=== PATIENT | female | born 1965 | race Caucasian/White ===

== ENCOUNTER 2024-01-27 10:17 | Inpatient (IN) ==
[2024-01-27] MEDS ORDERED: PERCOCET TAB 5/325 MG PO PRN (13:32)
[2024-01-27] MEDS ORDERED: NITROSTAT SL PRN (13:32)
[2024-01-27] MEDS: LR 1,000 ML IV 1,000 ML IV SCH (14:24)
[2024-01-27 14:36] LABS: BASOPHILS # (AUTO) 0.1 X10^3/uL (0.0-0.1); BASOPHILS % (AUTO) 1.4 % (0.2-1.0); EOSINOPHILS # (AUTO) 0.4 x10^3/uL (0.0-0.2); EOSINOPHILS % (AUTO) 5.1 % (0.9-2.9); HEMATOCRIT 35.9 % (36.0-47.0); LYMPHOCYTES % (AUTO) 23.1 % (21.0-51.0); MEAN CORPUSCULAR HEMOGLOBIN 29.1 pg (27.0-34.0); MEAN CORPUSCULAR HGB CONC 33.3 g/dL (33.0-35.0); MEAN CORPUSCULAR VOLUME 87.1 fL (80.0-100.0); MONOCYTES # (AUTO) 0.5 x10^3/uL (0.3-0.8); MONOCYTES % (AUTO) 5.5 % (0.0-13.0); NEUTROPHILS # (AUTO) 5.7 x10^3/uL (2.2-4.8); NEUTROPHILS % (AUTO) 64.9 % (42.0-75.0); PLATELET COUNT 250 X10^3/uL (150.0-450.0); RED BLOOD COUNT 4.12 X10^6/uL (3.5-5.4); RED CELL DISTRIBUTION WIDTH 14.1 % (11.6-16.5); WHITE BLOOD COUNT 8.8 X10^3/uL (3.6-10.0)
[2024-01-27 14:45] LABS: INR 1.09 (0.8-1.3)
[2024-01-27] MEDS: HEPARIN SODIUM IN D5W 25,000 UNITS/500 ML BAG IV PRN (14:57)
[2024-01-27 15:01] LABS: ALANINE AMINOTRANSFERASE 30 Units/L (12-78); ALBUMIN 2.9 g/dL (3.4-5.0); ALKALINE PHOSPHATASE 138 Units/L (46-116); ASPARTATE AMINO TRANSFERASE 13 Units/L (15-37); BLOOD UREA NITROGEN 17 mg/dL (7-18); CALCIUM 8.3 mg/dL (8.5-10.1); CARBON DIOXIDE 29.1 mmol/L (21-32); CHLORIDE 105 mmol/L (98-107); COR CA(FOR HYPOALB) 9.2 mg/dL (8.5-10.1); COR NA(FOR HYPERGLY) 147 mmol/L (136-145); CREATININE 0.84 mg/dL (0.55-1.02); GLUCOSE 314 mg/dL (65-99); POTASSIUM 4.1 mmol/L (3.5-5.1); SODIUM 142 mmol/L (136-145); TOTAL PROTEIN 6.5 g/dL (6.4-8.2); eGFR NON BLACK RACES > 60 (>60)
[2024-01-27] MEDS: HEPARIN SODIUM INJ 5000 UNITS IVP ONE (15:09)
[2024-01-27] MEDS: NovoLIN R (or HumuLIN R) SC PRN (16:50)
[2024-01-27] MEDS: NEURONTIN CAP 100 MG PO SCH (20:10)
[2024-01-27] MEDS: LOPRESSOR TAB 50 MG PO SCH (20:10)
[2024-01-27] MEDS: HIBICLENS WASH EXT ONE (20:30)
--- NOTE | 2024-01-28 00:21 | DR.H&P ---
H&P History & Physical for Day of: H&P Date: 01/27/24 Chief Complaint Chief Complaint: right leg rest pain Allergies Allergies Allergy/AdvReac Type Severity Reaction Status Date / Time No Known Allergies Allergy Verified 12/10/23 13:00 History of Present Illness History of Present Illness: This is a 58 year old female with history of significant vascular disease and diabetes who recently had acute intervention of the left leg with rest pain and early tissue loss of the left lateral toes who in November of this year underwent atherectomy and drug coated balloon angioplasty of the distal left superficial femoral artery as well as angioplasty of the proximal left peroneal artery . The patient did have this as the only runoff with reconstitution of the posterior tibial artery . Her rest pain resolved and her skin of of the lateral 3 toes of the left foot healed .Follow- up Doppler studies show normal arterial blood flow of the left leg with normal ankle indices brachial and normal waveforms, however the patient has had some type of intervention of the right leg in the past and ankle brachial indices on this side are approximately 0.4 consistent with impending tissue loss. She does have some pain but no evidence of tissue loss of this time. She is admitted for heparin drip and intervention of the right leg . Past Medical History Past Medical History: Diabetes, Dyslipidemia and Hypertension Past Surgical History Surgical History: Hysterectomy Additional Surgical History: ortho surgery Family History Family Medical History: Cancer and [place] Social History Does patient currently use any type of tobacco product: No Have you used tobacco products in the last 12 months: No Type of Tobacco Use: None Does any household member use tobacco: No Alcohol Use: None Drug Use: Marijuana Medications Home Medications: Home Medications Medication Instructions Recorded Confirmed Type amlodipine 5 mg tablet 5 mg PO QDAY 12/10/23 01/27/24 History atorvastatin 80 mg tablet 80 mg PO QDAY 12/10/23 01/27/24 History clopidogrel 75 mg tablet 75 mg PO QDAY 12/10/23 01/27/24 History escitalopram oxalate 10 mg tablet 10 mg PO QDAY 12/10/23 01/27/24 History insulin glargine U-300 conc 300 55 unit subcut DAILY 12/10/23 01/27/24 History unit/mL (1.5 mL) subcutaneous pen (Toujeo SoloStar U-300 Insulin) linagliptin 5 mg tablet (Tradjenta) 5 mg PO QDAY 12/10/23 01/27/24 History lorazepam 0.5 mg tablet 0.5 mg PO PRN PRN Anxiety 12/10/23 01/27/24 History losartan 100 mg tablet 100 mg PO QDAY 12/10/23 01/27/24 History metoprolol tartrate 50 mg tablet 50 mg PO BID 12/10/23 01/27/24 History pregabalin 100 mg capsule 100 mg PO BID 12/10/23 01/27/24 History Labs 01/27/24 14:15 01/27/24 14:15 Labs: Laboratory WBC 8.8 X10^3/uL (3.6-10.0) 01/27/24 14:15 RBC 4.12 X10^6/uL (3.5-5.4) 01/27/24 14:15 Hgb 12.0 g/dL (12.0-16.0) 01/27/24 14:15 Hct 35.9 % (36.0-47.0) L 01/27/24 14:15 MCV 87.1 fL (80.0-100.0) 01/27/24 14:15 MCH 29.1 pg (27.0-34.0) 01/27/24 14:15 MCHC 33.3 g/dL (33.0-35.0) 01/27/24 14:15 RDW 14.1 % (11.6-16.5) 01/27/24 14:15 Plt Count 250 X10^3/uL (150.0-450.0) 01/27/24 14:15 MPV 9.0 fL (7.4-11.0) 01/27/24 14:15 Neut % (Auto) 64.9 % (42.0-75.0) 01/27/24 14:15 Lymph % (Auto) 23.1 % (21.0-51.0) 01/27/24 14:15 [place] % (Auto) 5.5 % (0.0-13.0) 01/27/24 14:15 Eos % (Auto) 5.1 % (0.9-2.9) H 01/27/24 14:15 Baso % (Auto) 1.4 % (0.2-1.0) H 01/27/24 14:15 Neut # (Auto) 5.7 x10^3/uL (2.2-4.8) H 01/27/24 14:15 Lymph # (Auto) 2.0 X10^3/uL (1.3-2.9) 01/27/24 14:15 [place] # (Auto) 0.5 x10^3/uL (0.3-0.8) 01/27/24 14:15 Eos # (Auto) 0.4 x10^3/uL (0.0-0.2) H 01/27/24 14:15 Baso # (Auto) 0.1 X10^3/uL (0.0-0.1) 01/27/24 14:15 Absolute Nucleated RBC 0.1 /100WBC 01/27/24 14:15 PT 13.9 SECONDS (11.8-14.3) 01/27/24 14:15 INR Target Range - 01/27/24 14:15 INR 1.09 (0.8-1.3) 01/27/24 14:15 APTT 80.3 SECONDS (22.9-36.5) H 01/27/24 20:15 PTT Comment - 01/27/24 20:15 Sodium 142 mmol/L (136-145) 01/27/24 14:15 Corrected Sodium 147 mmol/L (136-145) H 01/27/24 14:15 Potassium 4.1 mmol/L (3.5-5.1) 01/27/24 14:15 Chloride 105 mmol/L (98-107) 01/27/24 14:15 Carbon Dioxide 29.1 mmol/L (21-32) 01/27/24 14:15 BUN 17 mg/dL (7-18) 01/27/24 14:15 Creatinine 0.84 mg/dL (0.55-1.02) 01/27/24 14:15 Est GFR (MDRD) Af Amer > 60 (>60) 01/27/24 14:15 Est GFR (MDRD) Non-Af > 60 (>60) 01/27/24 14:15 Glucose 314 mg/dL (65-99) H 01/27/24 14:15 POC Glucose (mg/dL) 186 mg/dL (65-99) H 01/27/24 19:53 Calcium 8.3 mg/dL (8.5-10.1) L 01/27/24 14:15 Corrected Calcium 9.2 mg/dL (8.5-10.1) 01/27/24 14:15 Total Bilirubin 0.30 mg/dL (0.2-1.0) 01/27/24 14:15 AST 13 Units/L (15-37) L 01/27/24 14:15 ALT 30 Units/L (12-78) 01/27/24 14:15 Alkaline Phosphatase 138 Units/L (46-116) H 01/27/24 14:15 Total Protein 6.5 g/dL (6.4-8.2) 01/27/24 14:15 Albumin 2.9 g/dL (3.4-5.0) L 01/27/24 14:15 Globulin 3.6 g/dL (2.5-4.5) 01/27/24 14:15 Albumin/Globulin Ratio 0.8 Ratio (1.1-2.1) L 01/27/24 14:15 Review of Systems Constitutional: See HPI Eyes: No Symptoms Reported ENT: No Symptoms Reported Respiratory: No Symptoms Reported Cardiovascular: No Symptoms Reported Gastrointestinal: No Symptoms Reported Genitourinary: No Symptoms Reported Musculoskeletal: No Symptoms Reported Skin: No Symptoms Reported Neurological: No Symptoms Reported Physical Exam Vital Signs: Vital Signs Temperature 98.2 F Pulse Rate 79 Pulse Rate 74 Pulse Rate 96 Pulse Rate 79 Pulse Rate 79 Pulse Rate 77 Pulse Rate 77 Pulse Rate 87 Pulse Rate 77 Pulse Rate 79 Pulse Rate 79 Pulse Rate 79 Pulse Rate 80 Pulse Rate 80 Pulse Rate 82 Pulse Rate 80 Pulse Rate 82 Pulse Rate 83 Respiratory Rate 34 Respiratory Rate 21 Respiratory Rate 20 Respiratory Rate 27 Respiratory Rate 18 Respiratory Rate 18 Respiratory Rate 18 Respiratory Rate 40 Respiratory Rate 19 Respiratory Rate 20 Respiratory Rate 19 Respiratory Rate 31 Respiratory Rate 30 Respiratory Rate 17 Respiratory Rate 43 Respiratory Rate 24 Respiratory Rate 29 Respiratory Rate 31 Blood Pressure 154/68 Blood Pressure 153/81 Blood Pressure 166/79 Blood Pressure 164/68 Blood Pressure 149/70 Blood Pressure 161/71 Blood Pressure 196/82 Blood Pressure 136/63 Blood Pressure 120/53 O2 Sat by Pulse Oximetry 96 O2 Sat by Pulse Oximetry 97 O2 Sat by Pulse Oximetry 97 O2 Sat by Pulse Oximetry 96 O2 Sat by Pulse Oximetry 98 O2 Sat by Pulse Oximetry 99 O2 Sat by Pulse Oximetry 98 O2 Sat by Pulse Oximetry 95 O2 Sat by Pulse Oximetry 98 O2 Sat by Pulse Oximetry 96 O2 Sat by Pulse Oximetry 97 O2 Sat by Pulse Oximetry 99 O2 Sat by Pulse Oximetry 97 O2 Sat by Pulse Oximetry 99 O2 Sat by Pulse Oximetry 96 O2 Sat by Pulse Oximetry 98 O2 Sat by Pulse Oximetry 97 O2 Sat by Pulse Oximetry 95 Oriented: Normal, Time, Person and Place Eyes: Normal Ear: Normal Nose: Normal Respiratory: Clear Throughout Cardiovascular: Normal and Other (Palpable femoral pulses bilaterally ,palpable distal pulses left ankle ,absent pulses right ankle ) : Normal Auscultation: Bowel Sounds: Normal Palpation: Normal Tenderness: Normal Skin: Normal Musculoskeletal: Normal Psychiatric: Normal Mood Description: Calm Affect: Normal Speech Pattern: Clear Assessment/Plan (1) Atherosclerosis of [place] arteries of extremities with rest pain, left leg: Status: Acute Plan: Normalization of arterial flow left leg after recent intervention Ankle brachial indices now near normal . (2) Essential (primary) hypertension: Status: Acute Plan: home meds (3) Chronic ischemic heart disease, unspecified: Status: Acute Plan: home meds (4) Dyslipidemia: Status: Acute Plan: home meds (5) Diabetic retinopathy: Status: Acute (6) Atherosclerosis of [place] arteries of extremities with rest pain, right leg: Status: Acute Plan: Will plan aortogram and right leg arteriogram tomorrow with appropriate intervention .Risk and benefits discussed with the patient and she agrees to proceed . continue heparin drip for now .
[2024-01-28] MEDS: HEPARIN SODIUM INJ 5000 UNITS IVP ONE (03:04)
--- NOTE | 2024-01-28 05:52 | EKG ---
Test Reason : prreop Blood Pressure : */* mmHG Vent. Rate : 72 BPM Atrial Rate : 72 BPM P-R Int : 180 ms QRS Dur : 94 ms QT Int : 436 ms P-R-T Axes : 75 85 65 degrees QTc Int : 477 ms Sinus rhythm with occasional premature ventricular complexes Otherwise normal ECG When compared with ECG of 10-DEC-2023 13:51, premature ventricular complexes are now present T wave amplitude has decreased in Lateral leads Confirmed by Santhosh Bazan MD ([id number]) on 01/28/2024 8:45:01 AM Referred By: Confirmed By: Santhosh Bazan MD
--- NOTE | 2024-01-28 07:27 | RAD ---
EXAM:CHEST, 1 VIEWHISTORY:AIV-EB-VIESOCIO RIGHT LEG ISCHEMIA; HTN DM SX: HYST, LUMBAR SURG, ARTERIAL LEFT LEGCOMPARISON:12/10/2023FINDINGS:The cardiomediastinal silhouette is normal in size.No acute airspace disease. Left upper lobe scarring versus atelectasis. No pneumothorax or effusion.No acute osseous abnormality.IMPRESSION:No acute cardiopulmonary disease.THIS IS AN ELECTRONICALLY VERIFIED FINAL REPORT01/28/2024 7:24 AM - Electronically signed by Dash Sandoval MD
[2024-01-28] MEDS ORDERED: LEXAPRO ONE (08:20)
[2024-01-28] MEDS: LIPITOR TAB 80 MG PO SCH (08:39)
[2024-01-28] MEDS: ASPIRIN EC 81 MG PO SCH (08:39)
[2024-01-28] MEDS: COZAAR PO SCH (08:40)
[2024-01-28] MEDS: LEXAPRO PO SCH (08:40)
[2024-01-28] MEDS: NORVASC TAB 5 MG PO SCH (08:40)
[2024-01-28 08:47] VITALS: TEMP 97.4
[2024-01-28] MEDS: ZOFRAN INJ 4 MG VIAL IVP ONE (10:25)
[2024-01-28] MEDS ORDERED: ZOFRAN INJ 4 MG VIAL ONE (10:26)
[2024-01-28] MEDS: NS 1,000 ML IV 1,000 ML ONE (12:30)
[2024-01-28] MEDS: ANCEF VIAL 1 GRAM ONE (12:45)
[2024-01-28] MEDS: NS 100 ML IV 100 ML ONE (12:45)
[2024-01-28] MEDS: PEPCID 20 MG VIAL ONE (12:56)
[2024-01-28] MEDS: ZOFRAN INJ 4 MG VIAL ONE (12:56)
[2024-01-28] MEDS: DIPRIVAN VIAL 20 ML ONE (12:56)
[2024-01-28] MEDS: VERSED ONE (12:56)
[2024-01-28] MEDS: FENTANYL VIAL INJ 100 mcg ONE (12:56)
[2024-01-28] MEDS ORDERED: KETAMINE HCL ONE (12:56)
[2024-01-28] MEDS: VISIPAQUE 50 ML ONE (13:15)
[2024-01-28] MEDS: VISIPAQUE 100 ML ONE (13:15)
[2024-01-28] MEDS: MARCAINE 0.5% ONE (13:15)
[2024-01-28] MEDS: HEPARIN SODIUM IN D5W 75,000 UNITS/1,500 ML BAG ONE (13:15)
[2024-01-28] MEDS: EPHEDRINE SULFATE INJ ONE (13:18)
[2024-01-28] MEDS: HEPARIN SODIUM INJ 5000 UNITS ONE (13:22)
[2024-01-28] MEDS: NS 500 ML IV 500 ML IV ONE (13:28)
[2024-01-28] MEDS ORDERED: PROTAMINE SULFATE 50 MG VIAL ONE (13:35)
--- NOTE | 2024-01-28 14:03 | OR.IMMED ---
IMMEDIATE POST-OP NOTE Immediate Post-Op Note Date of surgery/procedure: 01/28/24 Pre-Op Diagnosis: critical ischemia right leg Post-Op Diagnosis: same Procedure: aortogram,arteriogram right leg, atherectomy and drug coated balloon angioplasty right distal superficail femoral artery Description of Procedure: see dictation Surgeon/Personal Care Service Provider: Tish Findings: severe stenosis of the proximal stent in distal SFA, severe stenosis of right SFA distal to the stent in the right SFA. Estimated Blood Loss: 50 cc Complications: none Progress Notes: return to CCU, d/c heparin drip, begin diabetic diet. Home later today.
[2024-01-28 15:23] VITALS: BP 148/67; PULSE 67; RESP 14; O2SAT 99
--- NOTE | 2024-01-28 16:29 | W.DIS.FURT ---
Summary of Discharge Discharge Summary of Date Date of Exam: 01/28/24 Admission Date Date of Admission: 01/27/24 Admission Diagnosis Hospital Course: 58 year old female with history of peripheral vascular disease and coronary artery disease who several weeks ago had an ischemic left leg requiring Heparin drip and subsequent arterial intervention .Post-procedure ankle brachial indices of the left leg were now greater than 1 with excellent biphasic flow to the ankle .She had had peripheral vascular intervention of the right leg in [place] approximately 2 years ago and a second time approximately 1 year ago .Follow-up Doppler showed normal flow of the left leg with normal ankle brachial indices ,however ankle break indices on the right side were 0.4 consistent with impending tissue loss. She was admitted and placed on a heparin drip and taken to the operating Suite today and arteriogram showed severe disease above the stent in the distal right superficial from artery as well as severe disease of the distal superficial femoral artery below the stent with 3 vessel runoff but very small vessels run off to the ankle .She underwent atherectomy and drug coated balloon angioplasty of the distal right superficial femoral including the previously placed stent of the right leg itself .She has done well and will be discharged home on her usual diet and her usual medications including Xarelto and aspirin with follow-up to see me in 2 weeks . Vital Signs: Vital Signs (72 hours) 01/27/24 12:00 01/27/24 11:45 01/27/24 12:17 Temperature Pulse Rate 81 81 Respiratory Rate 21 22 Blood Pressure 138/72 O2 Sat by Pulse Oximetry 98 97 Oxygen Delivery Method Room Air Room Air 01/27/24 12:30 01/27/24 12:45 01/27/24 13:00 Temperature Pulse Rate 87 81 82 Respiratory Rate 16 25 H 14 Blood Pressure O2 Sat by Pulse Oximetry 100 97 99 Oxygen Delivery Method 01/27/24 13:00 01/27/24 13:15 01/27/24 13:30 Temperature Pulse Rate 89 82 Respiratory Rate 34 H 18 Blood Pressure 142/63 O2 Sat by Pulse Oximetry 99 95 Oxygen Delivery Method 01/27/24 13:45 01/27/24 14:00 01/27/24 14:01 Temperature Pulse Rate 80 78 79 Respiratory Rate 20 19 18 Blood Pressure O2 Sat by Pulse Oximetry 94 L 94 L 94 L Oxygen Delivery Method 01/27/24 14:01 01/27/24 14:15 01/27/24 13:25 Temperature 97.8 F Pulse Rate 80 Respiratory Rate 24 Blood Pressure 147/63 O2 Sat by Pulse Oximetry 96 Oxygen Delivery Method Room Air 01/27/24 14:30 01/27/24 14:45 01/27/24 15:00 Temperature Pulse Rate 80 82 81 Respiratory Rate 22 19 20 Blood Pressure O2 Sat by Pulse Oximetry 96 98 98 Oxygen Delivery Method 01/27/24 15:03 01/27/24 15:03 01/27/24 15:15 Temperature 98.1 F Pulse Rate 80 80 Respiratory Rate 22 18 Blood Pressure 143/68 O2 Sat by Pulse Oximetry 96 96 Oxygen Delivery Method 01/27/24 15:30 01/27/24 15:45 01/27/24 16:00 Temperature Pulse Rate 83 82 80 Respiratory Rate 31 H 29 H 24 Blood Pressure O2 Sat by Pulse Oximetry 95 97 98 Oxygen Delivery Method 01/27/24 16:01 01/27/24 16:01 01/27/24 16:15 Temperature Pulse Rate 82 80 Respiratory Rate 43 H 17 Blood Pressure 120/53 O2 Sat by Pulse Oximetry 96 99 Oxygen Delivery Method 01/27/24 16:30 01/27/24 16:45 01/27/24 17:00 Temperature Pulse Rate 80 79 79 Respiratory Rate 30 H 31 H 19 Blood Pressure O2 Sat by Pulse Oximetry 97 99 97 Oxygen Delivery Method 01/27/24 17:00 01/27/24 17:15 01/27/24 17:30 Temperature Pulse Rate 79 77 Respiratory Rate 20 19 Blood Pressure 136/63 O2 Sat by Pulse Oximetry 96 98 Oxygen Delivery Method 01/27/24 17:45 01/27/24 18:00 01/27/24 18:00 Temperature Pulse Rate 87 77 Respiratory Rate 40 H 18 Blood Pressure 196/82 O2 Sat by Pulse Oximetry 95 98 Oxygen Delivery Method 01/27/24 18:10 01/27/24 18:10 01/27/24 19:00 Temperature Pulse Rate 77 Respiratory Rate 18 Blood Pressure 161/71 O2 Sat by Pulse Oximetry 99 Oxygen Delivery Method Room Air 01/27/24 19:00 01/27/24 20:00 01/27/24 21:00 Temperature 98.2 F Pulse Rate 79 79 96 H Respiratory Rate 18 27 H 20 Blood Pressure 149/70 164/68 166/79 O2 Sat by Pulse Oximetry 98 96 97 Oxygen Delivery Method Room Air Room Air Room Air 01/27/24 22:00 01/27/24 23:00 01/28/24 00:00 Temperature 98.2 F Pulse Rate 74 79 70 Respiratory Rate 21 34 H 16 Blood Pressure 153/81 154/68 148/70 O2 Sat by Pulse Oximetry 97 96 96 Oxygen Delivery Method Room Air Room Air Room Air 01/28/24 01:00 01/28/24 02:00 01/28/24 03:00 Temperature Pulse Rate 72 76 71 Respiratory Rate 21 17 17 Blood Pressure 153/68 148/62 168/73 O2 Sat by Pulse Oximetry 96 98 95 Oxygen Delivery Method Room Air Room Air Room Air 01/28/24 04:00 01/28/24 05:00 01/28/24 06:00 Temperature 97.7 F Pulse Rate 76 72 71 Respiratory Rate 15 26 H 17 Blood Pressure 141/65 156/67 145/65 O2 Sat by Pulse Oximetry 96 97 96 Oxygen Delivery Method Room Air Room Air Room Air 01/28/24 00:00 01/28/24 00:00 01/28/24 00:15 Temperature Pulse Rate 70 76 Respiratory Rate 16 18 Blood Pressure 148/70 O2 Sat by Pulse Oximetry 96 95 Oxygen Delivery Method 01/28/24 00:30 01/28/24 00:45 01/28/24 01:00 Temperature Pulse Rate 71 71 72 Respiratory Rate 16 16 21 Blood Pressure O2 Sat by Pulse Oximetry 98 96 96 Oxygen Delivery Method 01/28/24 01:00 01/28/24 01:15 01/28/24 01:30 Temperature Pulse Rate 71 71 Respiratory Rate 18 18 Blood Pressure 153/68 O2 Sat by Pulse Oximetry 95 97 Oxygen Delivery Method 01/28/24 01:45 01/28/24 02:00 01/28/24 02:01 Temperature Pulse Rate 74 71 Respiratory Rate 22 18 Blood Pressure 174/78 O2 Sat by Pulse Oximetry 98 95 Oxygen Delivery Method 01/28/24 02:01 01/28/24 02:15 01/28/24 02:20 Temperature Pulse Rate 70 73 76 Respiratory Rate 24 26 H 17 Blood Pressure O2 Sat by Pulse Oximetry 96 98 98 Oxygen Delivery Method 01/28/24 02:20 01/28/24 02:30 01/28/24 02:45 Temperature Pulse Rate 71 71 Respiratory Rate 17 14 Blood Pressure 148/62 O2 Sat by Pulse Oximetry 96 98 Oxygen Delivery Method 01/28/24 03:00 01/28/24 03:01 01/28/24 03:01 Temperature Pulse Rate 72 71 Respiratory Rate 18 17 Blood Pressure 168/73 O2 Sat by Pulse Oximetry 95 95 Oxygen Delivery Method 01/28/24 03:15 01/28/24 03:30 01/28/24 03:45 Temperature Pulse Rate 73 72 73 Respiratory Rate 15 16 15 Blood Pressure O2 Sat by Pulse Oximetry 96 98 95 Oxygen Delivery Method 01/28/24 04:00 01/28/24 04:01 01/28/24 04:01 Temperature Pulse Rate 76 76 Respiratory Rate 17 15 Blood Pressure 141/65 O2 Sat by Pulse Oximetry 95 96 Oxygen Delivery Method 01/28/24 04:15 01/28/24 04:30 01/28/24 04:45 Temperature Pulse Rate 73 81 73 Respiratory Rate 16 39 H 19 Blood Pressure O2 Sat by Pulse Oximetry 94 L 96 97 Oxygen Delivery Method 01/28/24 05:00 01/28/24 05:01 01/28/24 05:01 Temperature Pulse Rate 71 71 Respiratory Rate 21 20 Blood Pressure 179/75 O2 Sat by Pulse Oximetry 97 97 Oxygen Delivery Method 01/28/24 05:03 01/28/24 05:03 01/28/24 05:15 Temperature Pulse Rate 72 74 Respiratory Rate 26 H 24 Blood Pressure 156/67 O2 Sat by Pulse Oximetry 97 99 Oxygen Delivery Method 01/28/24 05:30 01/28/24 05:45 01/28/24 06:05 Temperature Pulse Rate 74 69 81 Respiratory Rate 31 H 17 17 Blood Pressure O2 Sat by Pulse Oximetry 97 95 97 Oxygen Delivery Method 01/28/24 06:06 01/28/24 06:06 01/28/24 06:08 Temperature Pulse Rate 76 71 Respiratory Rate 22 17 Blood Pressure 129/90 O2 Sat by Pulse Oximetry 97 96 Oxygen Delivery Method 01/28/24 06:08 01/28/24 06:15 01/28/24 06:30 Temperature Pulse Rate 69 72 Respiratory Rate 16 17 Blood Pressure 145/65 O2 Sat by Pulse Oximetry 97 97 Oxygen Delivery Method 01/28/24 06:45 01/28/24 07:00 01/28/24 07:01 Temperature Pulse Rate 71 78 75 Respiratory Rate 16 15 15 Blood Pressure O2 Sat by Pulse Oximetry 96 95 96 Oxygen Delivery Method 01/28/24 07:01 01/28/24 07:15 01/28/24 07:00 Temperature Pulse Rate 80 Respiratory Rate 19 Blood Pressure 168/72 O2 Sat by Pulse Oximetry 95 Oxygen Delivery Method Room Air 01/28/24 07:30 01/28/24 07:45 01/28/24 08:00 Temperature 97.4 F L Pulse Rate 80 80 85 Respiratory Rate 17 16 16 Blood Pressure O2 Sat by Pulse Oximetry 94 L 94 L 96 Oxygen Delivery Method 01/28/24 08:41 01/28/24 08:41 01/28/24 08:45 Temperature Pulse Rate 77 78 Respiratory Rate 14 Blood Pressure 149/69 O2 Sat by Pulse Oximetry 96 94 L Oxygen Delivery Method 01/28/24 09:00 01/28/24 09:00 01/28/24 09:15 Temperature Pulse Rate 74 70 Respiratory Rate 16 15 Blood Pressure 159/71 O2 Sat by Pulse Oximetry 95 96 Oxygen Delivery Method 01/28/24 09:30 01/28/24 09:45 01/28/24 08:52 Temperature Pulse Rate 74 69 Respiratory Rate 15 20 Blood Pressure O2 Sat by Pulse Oximetry 96 95 Oxygen Delivery Method Room Air 01/28/24 10:14 01/28/24 10:15 01/28/24 10:15 Temperature Pulse Rate 75 73 Respiratory Rate 14 Blood Pressure 147/65 O2 Sat by Pulse Oximetry 95 97 Oxygen Delivery Method 01/28/24 10:30 01/28/24 10:45 01/28/24 11:00 Temperature Pulse Rate 70 70 68 Respiratory Rate 12 14 16 Blood Pressure O2 Sat by Pulse Oximetry 100 94 L 95 Oxygen Delivery Method 01/28/24 11:24 01/28/24 11:30 01/28/24 11:45 Temperature Pulse Rate 68 66 67 Respiratory Rate 17 12 Blood Pressure O2 Sat by Pulse Oximetry 94 L 98 96 Oxygen Delivery Method 01/28/24 12:00 01/28/24 14:06 01/28/24 14:08 Temperature Pulse Rate 69 72 71 Respiratory Rate 12 15 Blood Pressure O2 Sat by Pulse Oximetry 98 98 97 Oxygen Delivery Method 01/28/24 14:08 01/28/24 14:15 01/28/24 14:15 Temperature Pulse Rate 69 Respiratory Rate 12 Blood Pressure 127/58 119/60 O2 Sat by Pulse Oximetry 97 Oxygen Delivery Method 01/28/24 14:30 01/28/24 14:30 01/28/24 14:45 Temperature Pulse Rate 68 Respiratory Rate 12 Blood Pressure 131/65 131/60 O2 Sat by Pulse Oximetry 98 Oxygen Delivery Method 01/28/24 14:45 01/28/24 15:00 01/28/24 15:00 Temperature Pulse Rate 69 67 Respiratory Rate 12 12 Blood Pressure 133/64 O2 Sat by Pulse Oximetry 98 99 Oxygen Delivery Method 01/28/24 15:15 01/28/24 15:15 Temperature Pulse Rate 67 Respiratory Rate 14 Blood Pressure 148/67 O2 Sat by Pulse Oximetry 99 Oxygen Delivery Method Labs: Laboratory Last Values WBC 8.8 X10^3/uL (3.6-10.0) 01/27/24 14:15 RBC 4.12 X10^6/uL (3.5-5.4) 01/27/24 14:15 Hgb 12.0 g/dL (12.0-16.0) 01/27/24 14:15 Hct 35.9 % (36.0-47.0) L 01/27/24 14:15 MCV 87.1 fL (80.0-100.0) 01/27/24 14:15 MCH 29.1 pg (27.0-34.0) 01/27/24 14:15 MCHC 33.3 g/dL (33.0-35.0) 01/27/24 14:15 RDW 14.1 % (11.6-16.5) 01/27/24 14:15 Plt Count 250 X10^3/uL (150.0-450.0) 01/27/24 14:15 MPV 9.0 fL (7.4-11.0) 01/27/24 14:15 Neut % (Auto) 64.9 % (42.0-75.0) 01/27/24 14:15 Lymph % (Auto) 23.1 % (21.0-51.0) 01/27/24 14:15 [place] % (Auto) 5.5 % (0.0-13.0) 01/27/24 14:15 Eos % (Auto) 5.1 % (0.9-2.9) H 01/27/24 14:15 Baso % (Auto) 1.4 % (0.2-1.0) H 01/27/24 14:15 Neut # (Auto) 5.7 x10^3/uL (2.2-4.8) H 01/27/24 14:15 Lymph # (Auto) 2.0 X10^3/uL (1.3-2.9) 01/27/24 14:15 [place] # (Auto) 0.5 x10^3/uL (0.3-0.8) 01/27/24 14:15 Eos # (Auto) 0.4 x10^3/uL (0.0-0.2) H 01/27/24 14:15 Baso # (Auto) 0.1 X10^3/uL (0.0-0.1) 01/27/24 14:15 Absolute Nucleated RBC 0.1 /100WBC 01/27/24 14:15 PT 13.9 SECONDS (11.8-14.3) 01/27/24 14:15 INR Target Range - 01/27/24 14:15 INR 1.09 (0.8-1.3) 01/27/24 14:15 APTT 89.3 SECONDS (22.9-36.5) H 01/28/24 09:35 PTT Comment - 01/28/24 09:35 Sodium 142 mmol/L (136-145) 01/27/24 14:15 Corrected Sodium 147 mmol/L (136-145) H 01/27/24 14:15 Potassium 4.1 mmol/L (3.5-5.1) 01/27/24 14:15 Chloride 105 mmol/L (98-107) 01/27/24 14:15 Carbon Dioxide 29.1 mmol/L (21-32) 01/27/24 14:15 BUN 17 mg/dL (7-18) 01/27/24 14:15 Creatinine 0.84 mg/dL (0.55-1.02) 01/27/24 14:15 Est GFR (MDRD) Af Amer > 60 (>60) 01/27/24 14:15 Est GFR (MDRD) Non-Af > 60 (>60) 01/27/24 14:15 Glucose 314 mg/dL (65-99) H 01/27/24 14:15 POC Glucose (mg/dL) 100 mg/dL (65-99) H 01/28/24 11:28 Calcium 8.3 mg/dL (8.5-10.1) L 01/27/24 14:15 Corrected Calcium 9.2 mg/dL (8.5-10.1) 01/27/24 14:15 Total Bilirubin 0.30 mg/dL (0.2-1.0) 01/27/24 14:15 AST 13 Units/L (15-37) L 01/27/24 14:15 ALT 30 Units/L (12-78) 01/27/24 14:15 Alkaline Phosphatase 138 Units/L (46-116) H 01/27/24 14:15 Total Protein 6.5 g/dL (6.4-8.2) 01/27/24 14:15 Albumin 2.9 g/dL (3.4-5.0) L 01/27/24 14:15 Globulin 3.6 g/dL (2.5-4.5) 01/27/24 14:15 Albumin/Globulin Ratio 0.8 Ratio (1.1-2.1) L 01/27/24 14:15 Reason For Visit: CRITICAL ISCEMIA RIGHT LEG Discharge Date Discharge Date: 01/28/24 Discharge Diagnosis All Active Problems (Updated 01/28/24 @ 00:16 by Fermin Winsotn) Atherosclerosis of [place] arteries of extremities with rest pain, right leg (Acute) Atherosclerosis of [place] arteries of extremities with rest pain, left leg (Acute) Diabetic retinopathy (Acute) Dyslipidemia (Acute) Chronic ischemic heart disease, unspecified (Acute) Essential (primary) hypertension (Acute) Plan of Treatment: Continue with present treatment and follow up plan. Pt is to keep follow up appointment as instructed and take medications as ordered. Discharge Medications Discharge Medications: No Known Allergies Allergy (Verified 12/10/23 13:00) continue all home medications Discharge Disposition Assessment: see hospital course Discharge Plan Discharge Plan Hospital Course: 58 year old female with history of peripheral vascular disease and coronary artery disease who several weeks ago had an ischemic left leg requiring Heparin drip and subsequent arterial intervention .Post-procedure ankle brachial indices of the left leg were now greater than 1 with excellent biphasic flow to the ankle .She had had peripheral vascular intervention of the right leg in [place] approximately 2 years ago and a second time approximately 1 year ago .Follow-up Doppler showed normal flow of the left leg with normal ankle brachial indices ,however ankle break indices on the right side were 0.4 consistent with impending tissue loss. She was admitted and placed on a heparin drip and taken to the operating Suite today and arteriogram showed severe disease above the stent in the distal right superficial from artery as well as severe disease of the distal superficial femoral artery below the stent with 3 vessel runoff but very small vessels run off to the ankle .She underwent atherectomy and drug coated balloon angioplasty of the distal right superficial femoral including the previously placed stent of the right leg itself .She has done well and will be discharged home on her usual diet and her usual medications including Xarelto and aspirin with follow-up to see me in 2 weeks . Patient Disposition: 01 HOME, SELF-CARE Condition: Stable Health Concerns: Post Hospitalization: new medications and changes needed to prevent readmission or further decline. Pt educated and given instructions on all concerns. Care Plan Goals: Problem: Pain/Alteration in Comfort Goal: Improve/ Resolve Pain; Achieve Pain Tolerance Instructions: Take pain medications as prescribed. Contact your primary care provider if your pain is unrelieved or worsens. Follow up with primary care provider as directed. Plan of Treatment: Continue with present treatment and follow up plan. Pt is to keep follow up appointment as instructed and take medications as ordered. Assessment: see hospital course Prescription drug monitoring program results: PDMP was not reviewed Prescriptions: Continued atorvastatin 80 mg tablet 80 mg PO QDAY clopidogrel 75 mg tablet 75 mg PO QDAY amlodipine 5 mg tablet 5 mg PO QDAY lorazepam 0.5 mg tablet 0.5 mg PO PRN PRN (Reason: Anxiety) metoprolol tartrate 50 mg tablet 50 mg PO BID losartan 100 mg tablet 100 mg PO QDAY escitalopram oxalate 10 mg tablet 10 mg PO QDAY pregabalin 100 mg capsule 100 mg PO BID Tradjenta 5 mg tablet 5 mg PO QDAY insulin glargine U-300 conc [[place] SoloStar U-300 Insulin] 300 unit/mL (1.5 mL) insulin pen 55 unit SUBCUT DAILY Patient Comments: [NO ORIGINAL SIG] Xarelto 2.5 mg tablet 2.5 mg PO BID Qty: 180 0RF Follow ups/Referrals Follow ups/Referrals: Fermin Winston [STAFF PHYSICIAN] - 02/10/24 4:00 pm Instructions Instructions: Atherosclerosis, Endovascular Therapy for Peripheral Vascular Disease, Care After, Pain Medicine Instructions Stand Alone Forms: Post Hospital Follow Up Care
--- NOTE | 2024-02-01 13:31 | DR.OPNOTE ---
OP NOTE Pre-Op Diagnosis: critical ischemia right leg Post-Op Diagnosis: same Procedure Date Date Of Procedure: 01/28/24 Procedure: Type syndrome PROCEDURE: DIAGNOSTIC AORTOGRAM, DIAGNOSTIC ARTERIOGRAM RIGHT LEG ,ATHERECTOMY AND DRUG COATED BALLOON ANGIOPLASTY RIGHT DISTAL SUPERFICIAL FEMORAL ARTERY. NARRATIVE : The patient was taken to the operative suite and placed in the supine position. The left groin and entire right leg were prepped and draped in sterile fashion. The patient was given intravenous sedation supervised by myself. Time out for the procedure obtained. Ultrasound used to identify the left femoral artery and the skin overlying it infiltrated with 0.5% Marcaine. Ultrasound then used to guide puncture of the left femoral artery and a 0.012 inch guide wire was placed. Incision made over the guide wire at the skin edge with a # 11 knife blade and a micro sheath placed over the guide wire into the left femoral artery The small guidewire exchanged for a 0.035 inch Advantage glide wire and the micro sheath exchanged for a 5 Fr vascular sheath Patient given 5000 units of intravenous heparin. Omni catheter was placed over the guide wire into the aorta and diagnostic aortogram carried out with the power injector showing normal aorta and iliac arteries . Omni catheter was used to steer the guide wire down the right common iliac artery to the distal right external iliac artery . Omni catheter was exchanged for a Jenner catheter and sequential arteriograms carried out of the right lower extremity showing severe disease of the right superficial femoral artery above and below the right superifical femoral artery stent. The 5 Fr sheath in the left groin in exchanged for a 7 Fr Cat[place] sheath which was parked in the proximal right superficial femoral artery.Jenner catheter and the guide wire were used to traverse the arteries of the right leg ultimately ending in the right posterior tibial artery . This was selective catheterization. 0.035 inch wire removed and exchanged for a 0.014 inch wire. Over this wire we placed the [place] atherectomy device and performed atherectomy of the the right superficial femoral artery both above and below the sent . At this point we performed drug coated balloon dilatation of artery below the stent with a [employer] 5 mm x 200mm [place] drug coated balloon. We then dialted the right superficial femoral artery above the stent with a [place] 6mm x 60 mm drug coated balloon. Each balloon inlflated for 3 minutes . At the completion of this a follow up arteriogram showed excellent results . All wires and devices removed. The 7 Fr sheath was pulled back into the aorta and a 0.035 inch wire placed. The destination sheath exchanged for an Angioseal device used to close the puncture of the left femoral artery. Dressing applied to the left groin. The patient taken to CCU in good condition. Type of Anesthesia: Local (0.5% Marcaine) Anesthesia Comment: plus MAC Findings: severe stenosis proximal to the stent in the right superficial femoral artery ,severe stenosis of the right superficial femoral artery distal to the stent in the right superficial femoral artery . Type of Fluids Used:: Lactated Ringers Total Amount of Fluid Infused:: 600 cc Urine output: 50 cc EBL: 50 cc Complications:: none Needle/Sponge Count:: correct Disposition/Condition: Pt. tolerated procedure without difficulty. Taken back to the CCU in stable condition.
== END 2024-01-28 15:40 | disposition home or self-care (01) | DRG 272 ==
LOC: ICU 11:09
PROVIDERS: ADMIT Surgery; ATTEND Surgery
DX: E11.65 Type 2 diabetes mellitus with hyperglycemia; I25.10 Atherosclerotic heart disease of native coronary artery without angina pectoris; I70.221 Atherosclerosis of native arteries of extremities with rest pain, right leg; I10 Essential (primary) hypertension; E11.319 Type 2 diabetes mellitus with unspecified diabetic retinopathy without macular edema; R79.1 Abnormal coagulation profile; E78.5 Hyperlipidemia, unspecified